=== PATIENT | female | born 1975 | race Caucasian/White ===

== ENCOUNTER 2023-08-13 10:30 | Emergency (ER) | payer OTHER, SELFPAY ==
--- NOTE | ~2023-08-13 | CT_ITS ---
EXAMINATION: CT FACIAL BONES WITH CONTRAST CLINICAL INFORMATION: Left-sided facial swelling, questionable dental abscess. COMPARISON: None. TECHNIQUE: Helical CT imaging was acquired through the facial bones and source images were reviewed along with axial reconstructions and sagittal and coronal MPRs. 85 mL of Omnipaque 350 were administered [address]. [address] examination was performed using dose optimization techniques as appropriate, variously including the following: *Automated exposure control *Adjustment of mA and/or kV according to patient size (this includes techniques or standardized protocols for targeted exams where dose is matched to indication/reason for exam; i.e. extremities or head) *Use of iterative reconstruction technique DLP: 352.52 mGy-cm mGy-cm FINDINGS: Odontogenic disease with multiple dental caries, missing teeth, and periapical lucencies. There is a left maxillary molar periapical lucency with associated dehiscence of the outer cortex and inner cortex of the axilla. Surrounding rim-enhancing fluid collection measuring up to 2 cm in AP diameter. There is additional dehiscence into the floor of the left maxillary sinus with left maxillary sinus opacification and probable abscess involvement. Extensive overlying fat stranding with thickening of the platysma. The globes and intraconal orbits are within normal limits. Mastoid air cells are well-aerated. Mildly enlarged left cervical level 1 and 2 lymph nodes are likely reactive. Limited intracranial evaluation is within normal limits. CT/CT facial bones w IV con IMPRESSION: Left maxillary molar dental remedios with dehiscence of the maxilla inner and outer cortex and dehiscence into the floor of the left maxillary sinus. There is a surrounding rim-enhancing fluid collection compatible with odontogenic abscess. Additionally, there are findings of odontogenic sinusitis and abscess/inflammatory change likely involves the inferior aspect of the left maxillary sinus. Extensive overlying asymmetric inflammatory changes are noted.
--- NOTE | 2023-08-13 11:20 | ED_ITS ---
HPI - General Adult General Chief complaint: Dental/Oral Stated complaint: Swelling in face Time Seen by Provider: 08/13/23 16:08 Source: patient and family Mode of arrival: ambulatory Limitations: no limitations History of Present Illness HPI narrative: 48 yo female with no sig PMH here with c/o poor dentition and known cavity that got worse last night now woke up with swollen left face and pain. She has pain opening mouth but no difficulty swallowing or speaking. She has had a fevers. MD complaint: dental abscess Onset (ago): day(s) (1) Location: mouth Severity: moderate Quality: aching and constant Pain Consistency: constant Relieving factors: none Exacerbating factors: other (chewing) Associated symptoms: fever/chills and headaches Treatments prior to arrival: none Related Data Previous Rx's Medication Instructions Recorded amoxicillin 875 mg-potassium 1 tab PO BID #20 tabs 08/13/23 clavulanate 125 mg tablet morphine 15 mg immediate release 15 mg PO Q6H PRN pain #18 tabs 08/13/23 tablet ondansetron 4 mg disintegrating 4 mg PO Q8H PRN nausea and 08/13/23 tablet vomiting #20 tabs Allergies Allergy/AdvReac Type Severity Reaction Status Date / Time No Known Allergies Allergy Verified 08/13/23 11:21 Review of Systems 2 Review of Systems: Constitutional : No Fever, No Chills ENT/Mouth : No swallowing difficulty, no change in voice, positive dental pain, positive jaw pain, positive facial swelling Eyes: No Eye Pain, No Swelling Cardiovascular : No Chest Pain, No SOB Respiratory : No Cough, No Sputum Gastrointestinal : No Nausea, No Vomiting, No Diarrhea Genitourinary : No Dysuria Musculoskeletal : No Myalgias Skin : No rash Neuro : No Weakness, No Numbness, pos Headache All other systems reviewed and are negative PMFSH Past Medical History Attestation statement: The following information was validated with the patient. Medical History No pertinent past medical history Social History Social History Smoked in Last 30 Days: No Use of substances other than those prescribed or required for medical reasons: No Advance Directives: No Advance Directives Information Provided: No Physical Exam ED Vital Signs: Vital Signs - 24 hr 08/13/23 11:21 08/13/23 16:07 08/13/23 18:39 Temperature 98 F 99.4 F Pulse Rate 75 76 66 Respiratory Rate 18 18 20 Blood Pressure 147/71 H 128/66 139/52 L Pulse Oximetry 99 99 99 Oxygen Delivery Method Room Air Room Air Room Air BMI result Body Mass Index 34.5 Appearance: Alert. Oriented X3. No acute distress. Eyes: Pupils equal, round and reactive to light. ENT: Pharynx normal. no trismus upper left 1st molar large cavity and decay with fluctuant abscess felt - external moderate swelling noted up to eye no pain with EOMi, no swelling in sublingual or submandibular swelling Neck: Normal inspection. Neck supple. CVS: Normal heart rate and rhythm. Pulses normal. Respiratory: No respiratory distress. Breath sounds normal. Abdomen: Soft and non-tender. Skin: Skin warm and dry. Normal skin color. Normal skin turgor. Extremities: No lower extremity edema. No calf ttp Neuro: Oriented X 3. No motor deficit. No sensory deficit. Course Course Course Narrative: RME: 48-year-old female presented to ED complaining of JIMENEZ x2 days with left- sided facial swelling x this morning. Admits want to dentist this morning was told to come to the ED for IV antibiotics. Had molar removed in June. Significant left-sided facial swelling noted with tenderness. Broken tooth Labs, facial CT ordered Full HPI, ROS and PE to be performed by primary ED provider. Reevaluation(s) Reevaluation #1: call to [facility] they are closed for transfer Reevaluation #2: call to [facility] Reevaluation #3: long discussion with Dr. Cooper covering OMFS - no need to transfer discussed CT findings - aware of bony erosion, images were sent over, two separate phone calls done. at this time no emergent OMFS needs - can be DC to dentist and needs tooth pulled. Additional Reevaluation(s): swelling has improved, patinet does have a dentist Medications Administered Generic Name Dose Route Start Last Admin Trade Name Freq PRN Reason Stop Dose Admin Vancomycin HCl 2,000 mg in 500 mls @ 250 mls/hr 08/13/23 18:41 08/13/23 18:58 Vancomycin/Ns IV 08/13/23 20:40 250 mls/hr ONCE ONE Administration Sodium Chloride 1,000 mls @ 100 mls/hr 08/13/23 18:45 08/13/23 18:52 Ns IVCONT 100 mls/hr .Q10H BLAKE Administration Discontinued Medications Generic Name Dose Route Start Last Admin Trade Name Freq PRN Reason Stop Dose Admin Piperacillin Sod/Tazobactam 50 mls @ 100 mls/hr 08/13/23 16:15 08/13/23 18:19 Sod 3.375 gm/ Sodium Chloride IV 08/13/23 16:44 Infused ONCE ONE Infusion Ibuprofen 600 mg 08/13/23 13:33 08/13/23 13:37 Ibuprofen 600 Mg Tablet PO 08/13/23 13:34 600 mg ONCE ONE Administration Iohexol 85 ml 08/13/23 17:02 08/13/23 17:03 Iohexol 350 Mg/Ml 100 Ml Infus..Btl IV 08/13/23 17:03 85 ml ONCE ONE Administration Ketorolac Tromethamine 15 mg 08/13/23 16:15 08/13/23 16:35 Ketorolac Tromethamine 15 Mg/Ml Vial IVPUSH 08/13/23 16:16 15 mg ONCE ONE Administration Lidocaine HCl 5 ml 08/13/23 17:28 08/13/23 17:45 Lidocaine Hcl 1 % Mpf 5 Ml Vial SUBCUT 08/13/23 17:29 5 ml ONCE ONE Administration Morphine Sulfate 4 mg 08/13/23 16:15 08/13/23 16:35 Morphine Sulfate 4 Mg/Ml Cartridge IVPUSH 08/13/23 16:16 4 mg ONCE ONE Administration Protocol Morphine Sulfate 4 mg 08/13/23 18:41 08/13/23 18:52 Morphine Sulfate 4 Mg/Ml Cartridge IVPUSH 08/13/23 18:42 4 mg ONCE ONE Administration Protocol Ondansetron HCl 4 mg 08/13/23 16:15 08/13/23 16:33 Ondansetron Hcl 4 Mg/2 Ml Vial IVPUSH 08/13/23 16:16 4 mg ONCE ONE Administration Procedures Abscess I/D Site: oral Side (if applicable): left Local Anesthetic: lidocaine 1% Amount of anesthesia used (mL): 5 Technique: incised with blade (10) Amount of fluid expressed (mL): 0 Sent for culture/gram staining?: No Irrigation: No Packing used?: none Complications: other (no drainage - there was no purulence expressed at this time. ) Medical Decision Making Medical Decision Making [facility] Narrative: 48 yo female with no PMH here with c/o L upper dental abscess now with sig facial swelling - I will obtain labs, start on IV morphine and IV zosyn I can feel the abscess will likely I+D the area and obtain CT scan to assess for deeper infection now has facial cellulitis associated with it. Differential Diagnosis Differential Diagnoses: The differential diagnosis associated with the presentation includes dental abscess, facial cellullitis Admission/Observation Consideration of admission/observation: Escalation of care including admission/observation considered possible transfer given CT but OMFS states can be done outpatient Lab Data [facility] Lab Attestation statement: I reviewed the patient's lab results. 08/13/23 12:09 08/13/23 12:09 Labs: Lab Results 08/13/23 08/13/23 Range/Units 12: 16:23 WBC 9.9 (4.8-10.8) X10*3/uL RBC 5.03 (4.20-5.50) X10*6/uL Hgb 11.0 L (12.0-16.0) g/dl Hct 36.6 L (37.0-47.0) % MCV 72.8 L (80.0-98.0) fL MCH 21.9 L (27.0-33.0) pg MCHC 30.1 L (31.0-35.0) g/dl RDW 21.8 H (11.0-16.0) % Plt Count 417 H (160-400) X10*3/uL MPV 9.0 L (9.4-12.3) fL Immature Gran % (Auto) 0.3 (0.0-0.4) % Neut % (Auto) 72.4 (45-73) % Lymph % (Auto) 17.2 L (20-40) % [place] % (Auto) 7.9 (2-11) % Eos % (Auto) 1.7 (0-4) % Baso % (Auto) 0.5 (0-2) % Lymph # (Auto) 1.7 (1.2-4.9) X10*3/uL [place] # (Auto) 0.8 (0.1-1.2) X10*3/uL Eos # (Auto) 0.2 (0.0-0.4) X10*3/uL Baso # (Auto) 0.1 (0.0-0.2) X10*3/uL Abs Immat Gran (auto) 0.03 (0.00-0.03) X10*3/uL Absolute Neuts (auto) 7.2 (2.0-8.3) x10*3/uL Absolute Nucleated RBC 0.000 (0.0-0.012) X10*3/uL Nucleated RBC % (auto) 0.0 (0.0-0.2) /100WBC ESR 48 H (0-20) MM/HR Sodium 138 (135-145) mmol/L Potassium 3.9 (3.3-5.1) mmol/L Chloride 105 (96-108) mmol/L Carbon Dioxide 25 (22-29) mmol/L Anion Gap 12 (12-20) BUN 6 L (9-16) mg/dL Creatinine 0.70 (0.5-1.4) mg/dL Estim Creat Clear Calc 104.7 Estimated GFR > 60 Random Glucose 95 (60-115) mg/dL Lactic Acid 0.7 (0.5-2.0) mmol/L Calcium 9.5 (8.4-10.2) mg/dL C-Reactive Protein 2.74 H (< or = 0.50) mg/dL Beta HCG, Quant < 2 mIU/mL Independent Interpretation I performed an independent interpretation of an: CT Scan (abscess with sinus erosion) Radiology Impression Discussion of test interpretation with radiology: I have reviewed the radiologist's reading. Independent Historian Clinical information obtained from an independent historian. History obtained from or confirmed by: Spouse Prescription Management I considered prescription management with: Pain Medication and Antibiotic Discharge Plan Discharge Clinical Impression: Dental abscess Patient Disposition: Home, Self-Care Instructions: Cellulitis (ED) Additional Instructions: this is very serious dental abscess - oral surgeon at [facility] was involved in your CT scan read which showed an abscess but also there was some evidence the abscess involved the floor of your maxillary sinus if you develop worsening swelling, eye pain or vision changes, difficulty swallowing, confusion seek immediate care it was advised by the oral surgeon that you get your tooth removed as soon as possible Prescriptions: New morphine 15 mg tablet 15 mg PO Q6H PRN (Reason: pain) Qty: 18 0RF Rx Instructions: partial fill okay; Partial Fill upon patient request. ondansetron 4 mg tablet,disintegrating 4 mg PO Q8H PRN (Reason: nausea and vomiting) Qty: 20 0RF amoxicillin-pot clavulanate 875-125 mg tablet 1 tab PO BID Qty: 20 0RF Print Language: Welsh
[2023-08-13 11:21] VITALS: BP 147/71; PULSE 75; RESP 18; TEMP 36.6; O2SAT 99; BMI 34.5
[2023-08-13 12:13] LABS: MANUAL DIFF FLAG NO
[2023-08-13 12:16] LABS: Basophils Absolute Auto 0.1 X10*3/uL (0.0-0.2); Basophils Percent Auto 0.5 % (0-2); Eosinophils Absolute Auto 0.2 X10*3/uL (0.0-0.4); Eosinophils Percent Auto 1.7 % (0-4); Hematocrit 36.6 % (37.0-47.0); Imm Gran Abs Auto 0.03 X10*3/uL (0.00-0.03); Imm Gran Pct Auto 0.3 % (0.0-0.4); Lymphocytes Absolute Auto 1.7 X10*3/uL (1.2-4.9); Lymphocytes Percent Auto 17.2 % (20-40); Mean Corpuscular HGB Conc 30.1 g/dl (31.0-35.0); Mean Corpuscular Hemoglobin 21.9 pg (27.0-33.0); Mean Corpuscular Volume 72.8 fL (80.0-98.0); Monocytes Absolute Auto 0.8 X10*3/uL (0.1-1.2); Monocytes Percent Auto 7.9 % (2-11); Neutrophils Absolute Auto 7.2 x10*3/uL (2.0-8.3); Neutrophils Percent Auto 72.4 % (45-73); Platelet Count 417 X10*3/uL (160-400); Red Blood Count 5.03 X10*6/uL (4.20-5.50); Red Cell Distribution Width 21.8 % (11.0-16.0); White Blood Count 9.9 X10*3/uL (4.8-10.8)
[2023-08-13 12:27] LABS: Anion Gap 12 (12-20); Blood Urea Nitrogen 6 mg/dL (9-16); C Reactive Protein 2.74 mg/dL (< or = 0.50); Calcium 9.5 mg/dL (8.4-10.2); Carbon Dioxide 25 mmol/L (22-29); Chloride 105 mmol/L (96-108); Creatinine Clr Calc Pharmacy 104.7; Estimated Glomerular Filt Rate > 60; Glucose Random 95 mg/dL (60-115); Potassium 3.9 mmol/L (3.3-5.1); Sodium 138 mmol/L (135-145)
[2023-08-13 12:53] LABS: Erythrocyte Sedimentation Rate 48 MM/HR (0-20)
[2023-08-13] MEDS: Ibuprofen 600 MG TABLET PO (13:37)
[2023-08-13 16:07] VITALS: BP 128/66; PULSE 76; RESP 18; TEMP 37.4; O2SAT 99
[2023-08-13 16:31] LABS: HCG Quantitative < 2 mIU/mL
[2023-08-13] MEDS: ondansetron HCL 4 MG/2 ML VIAL IVPUSH (16:33)
[2023-08-13] MEDS: Ketorolac Tromethamine 15 MG/ML VIAL IVPUSH (16:35)
[2023-08-13] MEDS: Morphine Sulfate 4 MG/ML CARTRIDGE IVPUSH ×2 (16:35→18:52)
[2023-08-13 16:38] LABS: Lactic Acid 0.7 mmol/L (0.5-2.0)
--- NOTE | 2023-08-13 16:45 | PC.NURSE ---
Pt aox4, ambulatory.comes in with left sided facial swelling and infected upper molar on left side. per pt, facial swelling was minor yesterday evening but became very noticeable this morning when she woke up. Pt went to dentist who sent her here. labs drawn, medicated for pain, CT scan done.
[2023-08-13] MEDS: iohexoL 350 MG/ML 100 ML INFUS..BTL 85 ML IV (17:03)
[2023-08-13] MEDS: Piperacillin Sodium/Tazobactam 3.375 GM in 0.9 % Sodium Chloride 50 ML IV (17:20)
[2023-08-13] MEDS: Lidocaine HCl 1 % MPF 5 ML VIAL SUBCUT (17:45)
[2023-08-13 18:39] VITALS: BP 139/52; PULSE 66; RESP 20; O2SAT 99
--- NOTE | 2023-08-13 18:40 | PC.NURSE ---
pt abcess attempted to be drained, nurse and DO at bedside. No puss was removed.
--- NOTE | 2023-08-13 18:45 | MHC.EDTECH ---
Called Gee @[phone] for TX. Spoke with Yoly to give pt. info and then took call
[2023-08-13] MEDS: 0.9 % Sodium Chloride 1,000 ML 100 ML IVCONT (18:52)
[2023-08-13] MEDS: vancomycin/NS 2,000 MG/500 ML PLAST..BAG 250 MG IV (18:58)
--- NOTE | 2023-08-13 19:09 | MHC.EDTECH ---
ANGELA CALLED BACK @[phone], TOOK CALL. CALL BACK FROM , TOOK CALL. ANGELA DENIED TX
[2023-08-13 19:12] VITALS: BP 133/58; PULSE 82; RESP 18; TEMP 37.6; O2SAT 97
--- NOTE | 2023-08-13 19:15 | MHC.EDTECH ---
This tech assumed care of patient at 1900,hourly rounds and vitals completed , MD at bedside is aware of temp 99.7 ,patient is awaiting to be discharged at this time
== END 2023-08-13 19:47 | disposition home or self-care (01) ==
PROVIDERS: Physician Assistant; Emergency Provider Emergency Medicine; PCP Pediatrics
DX: K04.7 Periapical abscess without sinus (principal); R51.9 Headache, unspecified; Z79.899 Other long term (current) drug therapy
CPT/HCPCS: 36415; 70487; 80048; 83605; 84702; 85025; 85652; 86140; 87040; 96361; 96365; 96375; 99284; J1885; J2270; J2405; J2543; J3370; Q9967